=== PATIENT | male | born 1985 | race Caucasian/White ===

== ENCOUNTER 2018-06-27 15:46 | Emergency (ER) | payer BC ==
[2018-06-27 16:09] VITALS: BP 110/69
--- NOTE | 2018-06-27 16:30 | UC ---
Complaint Male HPI - HPI Summary HPI Summary: The patient is a 33-year-old male who presents here for evaluation of right testicular pain and swelling. He states that the symptoms started gradually about 9 AM. He denies any trauma. He states that he started having some intermittent mild pain if his pant leg rubbed against his right testicle. Later on in the day he had about 1 hour of severe right testicular pain. Had severe pain has resolved. He went to the restroom and checked himself and said his right testicle is about twice the size of his left testicle. He denies his testicle being high riding. He has had no dysuria urgency or frequency. He will discharge. He has had no fever or chills. He has no back or belly pain. Currently he is pain-free unless he bumps his testicle. - History of Current Complaint Chief Complaint: UCGeneralIllness Stated Complaint: PERSONAL Time Seen by Provider: 06/27/18 16:05 Hx Obtained From: Patient Onset/Duration: Gradual Onset, Lasting Hours Timing: Constant Severity Initially: Mild Severity Currently: Mild Pain Intensity: 8 - at max Pain Scale Used: 0-10 Numeric Location: Testicle - R Character: Sharp Aggravating Factor(s): Nothing Alleviating Factor(s): Other - spontanously resolved Associated Signs And Symptoms: Negative: Diaphoresis, Back Pain, Fever, Hematuria, Dysuria, Constipation, Blood in Stool, Rectal Pain, Appetite, Nausea , Vomiting(# Of Episodes =), Penile Swelling, Penile Discharge - Risk Factors Testicular Torsion: Negative - Allergies/Home Medications Allergies/Adverse Reactions: Allergies Allergy/AdvReac Type Severity Reaction Status Date / Time No Known Allergies Allergy Verified 06/27/18 16:01 Home Medications: Home Medications Acetaminophen [Tylenol Extra Strength] 1,000 mg PO ONCE 06/27/18 [History Confirmed 06/27/18] PMH/Surg Hx/FS Hx/Imm Hx Previously Healthy: Yes - Surgical History Surgical History: None - Family History Known Family History: Negative: Cardiac Disease, Hypertension, Diabetes - Social History Alcohol Use: Rare Substance Use Type: None Smoking Status (MU): Never Smoked Tobacco Have You Smoked in the Last Year: No - Immunization History Hx Tetanus, Diphtheria Vaccination: Yes Vaccination Up to Date: Yes Review of Systems Constitutional: Negative Skin: Negative Eyes: Negative ENT: Negative Respiratory: Negative Cardiovascular: Negative Gastrointestinal: Negative Genitourinary: Other - right testicular pain and swelling Motor: Negative Neurovascular: Negative Musculoskeletal: Negative Neurological: Negative Psychological: Negative All Other Systems Reviewed And Are Negative: Yes Physical Exam Triage Information Reviewed: Yes Appearance: Well-Appearing, No Pain Distress, Well-Nourished Vital Signs: Initial Vital Signs Temp 99.5 F 06/27/18 16:02 Pulse 77 06/27/18 16:02 Resp 16 06/27/18 16:02 BP 110/69 06/27/18 16:02 Pulse Ox 97 06/27/18 16:02 Vital Signs Reviewed: Yes Eyes: Positive: Conjunctiva Clear ENT: Positive: Hearing grossly normal. Negative: Nasal congestion, Nasal drainage, Trismus, Muffled voice, Hoarse voice Neck: Positive: Supple, Nontender, No Lymphadenopathy Respiratory: Positive: Lungs clear, Normal breath sounds, No respiratory distress Cardiovascular: Positive: RRR, No Murmur, Pulses Normal Abdomen Description: Positive: Nontender, No Organomegaly, Soft. Negative: Bruit, CVA Tenderness (R), CVA Tenderness (L), Hernia @ Bowel Sounds: Positive: Present Male Genital Exam: Positive: Testicular Tenderness (R), Other - right hemiscotum swollen and slightly red/NO POSTERIOR testicular tenderness. Negative: Urethral Discharge Neurological: Positive: Alert, Muscle Tone Normal Psychological Exam: Normal Skin Exam: Normal Diagnostics - Laboratory Diagnostic Studies Completed/Ordered: UA (-) Complaint Male Course/Dx - Course Course Of Treatment: D/W aRdha Porras ARCHITECTURAL INSPECTOR at [facility]. I told her I was concerned he may have torsed and then detorsed his right testicle. I informed the patient of my concerns. I explained we had no U/S here today. I told him that if he had torsed he would need surgery. He understands and states he will go directly to the ER. - Differential Dx/Diagnosis Provider Diagnoses: Right testicular pain and swelling of uncertain cause Discharge - Sign-Out/Discharge Documenting (check all that apply): Patient Departure All imaging exams completed and their final reports reviewed: No Studies - Discharge Plan Condition: Stable Disposition: TRANS HIGHER LVL OF CARE FAC Referrals: No Primary Care Phys,NOPCP [Primary Care Provider] - Additional Instructions: I suggest you go straight to the ER at [facility] for evaluation of your symptoms I spoke to Solange Porras NP and they are expecting you - Billing Disposition and Condition Condition: STABLE Disposition: Trans Higher Lvl of Care Fac
== END 2018-06-27 16:44 | disposition short-term general hospital (02) ==
LOC: UCCORT 15:46
DX: N50.811 Right testicular pain (principal); N50.89 Other specified disorders of the male genital organs
CPT/HCPCS: 81003; 99212; G0463